=== PATIENT | male | born 1975 | race Two or more races ===

== ENCOUNTER → 2018-06-19 16:53 | Outpatient (CLI) | payer OTHER | END | disposition home or self-care (01) | LOC: RAD 16:53 | DX: I11.9 Hypertensive heart disease without heart failure (principal) ==

== ENCOUNTER → 2018-06-20 06:04 | Outpatient (CLI) | payer OTHER | END | disposition home or self-care (01) | LOC: LAB 06:04 | DX: I11.9 Hypertensive heart disease without heart failure (principal); R00.2 Palpitations ==

== ENCOUNTER 2018-12-13 08:35 | Outpatient (CLI) | payer OTHER | END 2018-12-13 09:01 | disposition home or self-care (01) | LOC: RAD 501 08:35 | DX: R06.02 Shortness of breath (principal); R05 Cough ==

== ENCOUNTER 2020-06-15 19:58 | Emergency (ER) | payer OTHER ==
[~2020-06-15] VITALS: Ht 182.9 cm; Wt 87.1 kg
== END 2020-06-15 20:58 | disposition home or self-care (01) ==
LOC: ER 19:58
DX: S61.221A Laceration with foreign body of left index finger without damage to nail, initial encounter (principal); W26.0XXA Contact with knife, initial encounter; Y93.89 Activity, other specified; Y92.010 Kitchen of single-family (private) house as the place of occurrence of the external cause; Y99.8 Other external cause status

== ENCOUNTER 2020-06-25 07:16 | Emergency (ER) | payer OTHER ==
[~2020-06-25] VITALS: Ht 182.9 cm; Wt 86.6 kg
== END 2020-06-25 08:49 | disposition home or self-care (01) ==
LOC: ER 07:16
DX: Z48.02 Encounter for removal of sutures (principal)